=== PATIENT | female | born 2005 | race Caucasian/White ===

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

== ENCOUNTER → 2024-07-12 | Outpatient (CLI) | payer OTHER ==
[~2024-07-12] MED LIST changes: +PREDNISONE20 M1 PO
[2024-07-12 10:56] LABS: BASO % 0.3 % (0.0-1.0); EOS % 0.2 % (1.0-4.0); HEMATOCRIT 41.4 % (37.0-47.0); MEAN CELL VOLUME 91.6 fl (81.0-99.0); MEAN CORPUSCULAR HGB CONC 33.8 g/dl (33.0-37.0); MEAN PLATELET VOLUME 9.8 fl (9.6-12.3); MONO # 0.8 10*3/uL (0.1-1.0); MONO % 6.8 % (3.0-9.0); NEUT # 7.5 10*3/uL (2.3-7.9); NEUT % 64.3 % (47.0-73.0); PLATELET COUNT AUTOMATED 311 10*3/uL (130-400); RED BLOOD COUNT 4.52 10*6/uL (4.10-5.10); RED CELL DISTRI WIDTH 12.5 % (0-14.5); WHITE BLOOD COUNT 11.7 10*3/uL (4.8-10.8)
[2024-07-12 11:31] LABS: ALKALINE PHOSPHATASE 91 U/L (46-116); BUN 22 mg/dl (9-23); CHLORIDE 104 mmol/L (98-107); POTASSIUM 3.4 mmol/L (3.4-5.1); SGPT/ALT 24 U/L (5-49); TOTAL PROTEIN 7.7 gm/dL (6.0-8.0)
[2024-07-14 11:07] LABS: TB1 Ag VALUE 0.02 IU/mL (.)
== END | disposition home or self-care (01) ==
LOC: LAB 10:30
PROVIDERS: ATTEND Nurse Practitioner Family
DX: L40.0 Psoriasis vulgaris (principal)

== ENCOUNTER 2024-07-17 00:27 | Emergency (ER) | payer OTHER ==
[~2024-07-17] VITALS: Ht 154.9 cm; Wt 38.1 kg
[2024-07-17] MEDS ORDERED: LORazepam 1 MG TAB PO ONE (01:20)
[2024-07-17 01:33] LABS: BASO % 0.4 % (0.0-1.0); EOS % 0.1 % (1.0-4.0); HEMATOCRIT 40.7 % (37.0-47.0); MEAN CELL VOLUME 91.5 fl (81.0-99.0); MEAN CORPUSCULAR HGB 30.6 pg (27.0-31.0); MEAN CORPUSCULAR HGB CONC 33.4 g/dl (33.0-37.0); MEAN PLATELET VOLUME 9.4 fl (9.6-12.3); MONO # 0.6 10*3/uL (0.1-1.0); MONO % 6.1 % (3.0-9.0); NEUT # 6.4 10*3/uL (2.3-7.9); NEUT % 64.6 % (47.0-73.0); PLATELET COUNT AUTOMATED 351 10*3/uL (130-400); RED BLOOD COUNT 4.45 10*6/uL (4.10-5.10); RED CELL DISTRI WIDTH 12.4 % (0-14.5); WHITE BLOOD COUNT 9.8 10*3/uL (4.8-10.8)
[2024-07-17 01:51] LABS: BUN 21 mg/dl (9-23); CHLORIDE 102 mmol/L (98-107); POTASSIUM 3.4 mmol/L (3.4-5.1)
[2024-07-17] MEDS ORDERED: Ondansetron4 MG PO (02:05)
== END 2024-07-17 02:10 | disposition home or self-care (01) ==
LOC: ED 00:27
PROVIDERS: Internal Medicine
DX: F41.9 Anxiety disorder, unspecified (principal); R11.0 Nausea; Z88.6 Allergy status to analgesic agent; Z91.041 Radiographic dye allergy status; Z79.899 Other long term (current) drug therapy; Z87.42 Personal history of other diseases of the female genital tract

== ENCOUNTER 2024-07-22 01:04 | Emergency (ER) | payer OTHER ==
[~2024-07-22] VITALS: Ht 154.9 cm; Wt 38.1 kg
[~2024-07-22 01:04] MED LIST changes: +Ondansetron4 MG PO
== END 2024-07-22 03:26 | disposition home or self-care (01) ==
LOC: ED 01:04
DX: F41.1 Generalized anxiety disorder (principal); R10.84 Generalized abdominal pain; R11.0 Nausea; R63.0 Anorexia; Z88.6 Allergy status to analgesic agent; Z91.041 Radiographic dye allergy status; Z79.899 Other long term (current) drug therapy

== ENCOUNTER 2024-07-26 08:05 | Emergency (ER) | payer OTHER ==
[~2024-07-26] VITALS: Wt 36.3 kg
[2024-07-26] MEDS ORDERED: hydrOXYzine pamoate 25 MG CAP PO ONE (09:15)
[2024-07-26 09:37] LABS: BASO % 0.5 % (0.0-1.0); EOS # 0.1 10*3/uL (0.0-0.4); EOS % 0.7 % (1.0-4.0); HEMATOCRIT 44.1 % (37.0-47.0); MEAN CELL VOLUME 91.7 fl (81.0-99.0); MEAN CORPUSCULAR HGB 30.8 pg (27.0-31.0); MEAN CORPUSCULAR HGB CONC 33.6 g/dl (33.0-37.0); MEAN PLATELET VOLUME 9.7 fl (9.6-12.3); MONO # 0.5 10*3/uL (0.1-1.0); MONO % 5.3 % (3.0-9.0); NEUT % 69.5 % (47.0-73.0); PLATELET COUNT AUTOMATED 356 10*3/uL (130-400); RED BLOOD COUNT 4.81 10*6/uL (4.10-5.10); RED CELL DISTRI WIDTH 12.8 % (0-14.5); WHITE BLOOD COUNT 8.6 10*3/uL (4.8-10.8)
[2024-07-26 09:56] LABS: BUN 18 mg/dl (9-23); CHLORIDE 101 mmol/L (98-107); POTASSIUM 3.3 mmol/L (3.4-5.1)
== END 2024-07-26 10:38 | disposition home or self-care (01) ==
LOC: ED 08:05
PROVIDERS: Internal Medicine
DX: F41.9 Anxiety disorder, unspecified (principal); F84.0 Autistic disorder; Z79.899 Other long term (current) drug therapy; Z88.6 Allergy status to analgesic agent; Z91.041 Radiographic dye allergy status

== ENCOUNTER 2024-07-26 17:36 | Emergency (ER) | payer OTHER ==
[~2024-07-26] VITALS: Ht 154.9 cm; Wt 38.1 kg
[2024-07-26] MEDS ORDERED: FAMOTIDINE 20 MG TAB PO ONE (18:15)
[2024-07-26] MEDS ORDERED: diphenhydrAMINE hydrochloride 25 MG CAP PO ONE (18:15)
[2024-07-26] MEDS ORDERED: Dexamethasone Sodium Phospha 20 MG/5 ML VIAL PO ONE (18:20)
== END 2024-07-26 20:21 | disposition home or self-care (01) ==
LOC: ED 17:36
DX: F41.9 Anxiety disorder, unspecified (principal); R22.0 Localized swelling, mass and lump, head; R06.02 Shortness of breath; T43.595A Adverse effect of other antipsychotics and neuroleptics, initial encounter; Z79.899 Other long term (current) drug therapy; Z88.6 Allergy status to analgesic agent; Z91.041 Radiographic dye allergy status; Y92.89 Other specified places as the place of occurrence of the external cause